=== PATIENT | female | born 1960 | race Caucasian/White ===

== ENCOUNTER 2019-02-24 16:02 | Emergency (ER) | payer OTHER ==
[2019-02-24] MEDS: ONDANSETRON (ODT) 4 MG TAB ODT (17:16)
[2019-02-24] MEDS: HYDROCODONE/APAP (5/325) TAB PO (17:16)
== END 2019-02-24 18:34 | disposition home or self-care (01) ==
LOC: E/R 16:02
DX: M79.604 Pain in right leg (principal); I10 Essential (primary) hypertension; E11.9 Type 2 diabetes mellitus without complications; Z79.84 Long term (current) use of oral hypoglycemic drugs
CPT/HCPCS: 73590; 93971; 99284-25